=== PATIENT | female | born 1935 | race Caucasian/White ===

== ENCOUNTER 2017-05-13 17:35 | Emergency (ER) | payer MEDICARE ==
[2017-05-13 18:05] VITALS: BP 140/56
--- NOTE | 2017-05-13 19:15 | UC ---
Complaint Female HPI - HPI Summary HPI Summary: urinary pain and burning for 7 hours--no fever, chills, nausea or vomiting - History Of Current Complaint Chief Complaint: UCGU Stated Complaint: URINARY SYMPTOMS Time Seen by Provider: 05/13/17 19:08 Hx Obtained From: Patient ?: No Onset/Duration: Sudden Onset, Lasting Hours - 7 Timing: Constant Severity Initially: Moderate Severity Currently: Moderate Pain Intensity: 4 Pain Scale Used: 0-10 Numeric Character: Burning Aggravating Factor(s): Urination Alleviating Factor(s): Nothing Associated Signs And Symptoms: Positive: Negative - Allergies/Home Medications Allergies/Adverse Reactions: Allergies Allergy/AdvReac Type Severity Reaction Status Date / Time Colestipol Allergy Intermediate Rash Verified 05/13/17 17:46 Doxazosin Allergy Intermediate Itching Verified 05/13/17 17:46 Ranitidine Allergy Unknown Unknown Verified 05/13/17 17:46 Reaction Details Simvastatin Allergy Unknown Unknown Verified 05/13/17 17:46 Reaction Details Sulfa Antibiotics Allergy Unknown Unknown Verified 05/13/17 17:46 Reaction Details FLURASTATIN Allergy Unknown Unknown Uncoded 05/13/17 17:46 Reaction Details PMH/Surg Hx/FS Hx/Imm Hx Previously Healthy: No Endocrine History: Hypothyroidism Cardiovascular History: Hypertension - Surgical History Surgical History: Yes Surgery Procedure, Year, and Place: HYSTERECTOMY 1973, BLADDER LIFT - Family History Known Family History: Positive: None - Social History Occupation: Retired Lives: With Family Alcohol Use: None Substance Use Type: None Smoking Status (MU): Never Smoked Tobacco Review of Systems Constitutional: Negative Skin: Negative Eyes: Negative ENT: Negative Respiratory: Negative Cardiovascular: Negative Gastrointestinal: Negative Genitourinary: Negative, Dysuria, Frequency, Urgency Motor: Negative Neurovascular: Negative Musculoskeletal: Negative Neurological: Negative Psychological: Negative All Other Systems Reviewed And Are Negative: Yes Physical Exam Triage Information Reviewed: Yes Appearance: Well-Appearing, No Pain Distress, Well-Nourished Vital Signs: Initial Vital Signs Temp 99.2 F 05/13/17 17:43 Pulse 58 05/13/17 17:43 Resp 12 05/13/17 17:43 BP 140/56 05/13/17 17:43 Pulse Ox 100 05/13/17 17:43 Vital Signs Reviewed: Yes Eye Exam: Normal Eyes: Positive: Conjunctiva Clear ENT Exam: Normal ENT: Positive: Normal ENT inspection, Hearing grossly normal, Pharynx normal, TMs normal. Negative: Nasal drainage, Trismus, Muffled/hoarse voice Dental Exam: Normal Neck exam: Normal Neck: Positive: Supple, Nontender Respiratory Exam: Normal Respiratory: Positive: Chest non-tender, No respiratory distress, No accessory muscle use Cardiovascular Exam: Normal Cardiovascular: Positive: RRR, Pulses Normal, Brisk Capillary Refill Abdominal Exam: Normal Abdomen Description: Positive: Nontender, No Organomegaly, Soft. Negative: CVA Tenderness (R), CVA Tenderness (L) Musculoskeletal Exam: Normal Musculoskeletal: Positive: Strength Intact, ROM Intact, No Edema Neurological Exam: Normal Neurological: Positive: Alert, Muscle Tone Normal Psychological Exam: Normal Skin Exam: Normal Diagnostics - Laboratory Diagnostic Studies Completed/Ordered: ua +_2 leuks, lysed blood Complaint Female Dx - Course Course Of Treatment: increase fluids, macrobid, follow with pcp, continue current medications - Differential Dx/Diagnosis Differential Diagnosis/HQI/PQRI: Renal Colic, Sexually Transmitted Disease, Urinary Tract Infection Provider Diagnoses: UTI Discharge - Discharge Plan Condition: Stable Disposition: HOME Prescriptions: Nitrofurantoin Monohyd Macro [Macrobid] 100 mg PO BID #20 cap Patient Education Materials: Urinary Tract Infection in Women (ED) Referrals: Apple Peter MD [Primary Care Provider] - 2 Weeks
== END 2017-05-13 19:25 | disposition home or self-care (01) ==
LOC: UCEAST 17:35
DX: N39.0 Urinary tract infection, site not specified (principal); E03.9 Hypothyroidism, unspecified; I10 Essential (primary) hypertension
CPT/HCPCS: 81003; 87077; 87086; 87186; 99212; G0463

== ENCOUNTER 2017-06-27 11:17 | Emergency (ER) | payer MEDICARE ==
[2017-06-27 11:30] VITALS: BP 201/81
--- NOTE | 2017-06-27 13:12 | UC ---
Complaint Female HPI - HPI Summary HPI Summary: Pain and burning with urination began this morning, no nausea, vomiting, fevers , chills or back pain - History Of Current Complaint Chief Complaint: UCGU Stated Complaint: URINARY ISSUE Time Seen by Provider: 06/27/17 13:05 Hx Obtained From: Patient ?: No Onset/Duration: Sudden Onset, Lasting Days - 1, Still Present Timing: Constant Severity Initially: Moderate Severity Currently: Moderate Pain Intensity: 5 Pain Scale Used: 0-10 Numeric Character: Burning Aggravating Factor(s): Urination Alleviating Factor(s): Nothing Associated Signs And Symptoms: Positive: Negative - Allergies/Home Medications Allergies/Adverse Reactions: Allergies Allergy/AdvReac Type Severity Reaction Status Date / Time Colestipol Allergy Intermediate Rash Verified 06/27/17 11:31 Doxazosin Allergy Intermediate Itching Verified 06/27/17 11:31 Ranitidine Allergy Unknown Unknown Verified 06/27/17 11:31 Reaction Details Simvastatin Allergy Unknown Unknown Verified 06/27/17 11:31 Reaction Details Sulfa Antibiotics Allergy Unknown Unknown Verified 06/27/17 11:31 Reaction Details FLURASTATIN Allergy Unknown Unknown Uncoded 06/27/17 11:31 Reaction Details PMH/Surg Hx/FS Hx/Imm Hx Previously Healthy: No Endocrine History: Hypothyroidism Cardiovascular History: Hypertension - Surgical History Surgical History: Yes Surgery Procedure, Year, and Place: HYSTERECTOMY 1973, BLADDER LIFT - Family History Known Family History: Positive: None - Social History Occupation: Retired Lives: With Family Alcohol Use: None Substance Use Type: None Smoking Status (MU): Never Smoked Tobacco Review of Systems Constitutional: Negative Skin: Negative Eyes: Negative ENT: Negative Respiratory: Negative Cardiovascular: Negative Gastrointestinal: Negative Genitourinary: Dysuria, Frequency, Urgency Motor: Negative Neurovascular: Negative Musculoskeletal: Negative Neurological: Negative Psychological: Negative All Other Systems Reviewed And Are Negative: Yes Physical Exam Triage Information Reviewed: Yes Appearance: Well-Appearing, No Pain Distress, Well-Nourished Vital Signs: Initial Vital Signs Temp 96.3 F 06/27/17 11:25 Pulse 80 06/27/17 11:25 Resp 12 06/27/17 11:25 BP 201/81 06/27/17 11:25 Pulse Ox 100 06/27/17 11:25 Vital Signs Reviewed: Yes Eye Exam: Normal Eyes: Positive: Conjunctiva Clear ENT Exam: Normal ENT: Positive: Normal ENT inspection, Hearing grossly normal. Negative: Nasal congestion, Nasal drainage, Trismus, Muffled/hoarse voice Dental Exam: Normal Neck exam: Normal Neck: Positive: Supple, Nontender Respiratory Exam: Normal Respiratory: Positive: Chest non-tender, No respiratory distress, No accessory muscle use Cardiovascular Exam: Normal Cardiovascular: Positive: RRR, Brisk Capillary Refill Abdominal Exam: Normal Abdomen Description: Positive: No Organomegaly, Soft, Other: - suprapubic pressure. Negative: CVA Tenderness (R), CVA Tenderness (L) Bowel Sounds: Positive: Present Musculoskeletal Exam: Normal Musculoskeletal: Positive: Strength Intact, ROM Intact, No Edema Neurological Exam: Normal Neurological: Positive: Alert, Muscle Tone Normal Psychological Exam: Normal Skin Exam: Normal Complaint Female Dx - Course Course Of Treatment: keflex, increase fluids, follow elevated blood pressure with pcp - Differential Dx/Diagnosis Differential Diagnosis/HQI/PQRI: Renal Colic, Ureteral Stone, Urinary Tract Infection Provider Diagnoses: UTI, hypertension in poor control Discharge - Discharge Plan Condition: Stable Disposition: HOME Prescriptions: Cephalexin CAP* [Keflex CAP*] 500 mg PO BID #20 cap Patient Education Materials: Cephalexin (By mouth), Urinary Tract Infection in Women (ED) Referrals: Apple Peter MD [Primary Care Provider] - 2 Weeks
--- NOTE | 2017-06-29 10:59 | UC ---
Progress - Progress Note Progress Note: e coli more than 100k on Keflex. Ebenezer Tamez MD
== END 2017-06-27 13:20 | disposition home or self-care (01) ==
LOC: UCEAST 11:17
DX: N39.0 Urinary tract infection, site not specified (principal); B96.20 Unspecified Escherichia coli [E. coli] as the cause of diseases classified elsewhere; I10 Essential (primary) hypertension; E03.9 Hypothyroidism, unspecified; Z90.710 Acquired absence of both cervix and uterus
CPT/HCPCS: 81003; 87077; 87086; 87186; 99211; G0463

== ENCOUNTER 2018-05-03 18:54 | Emergency (ER) | payer MEDICARE ==
--- NOTE | 2018-05-03 19:16 | UC ---
Complaint Female HPI - HPI Summary HPI Summary: This patient is an 82 year old F presenting to [facility] with a chief complaint of burning with urination since this afternoon. The patient rates the pain 3/10 in severity. Symptoms aggravated by urination. Symptoms alleviated by nothing. Patient reports lower back pain and frequency since 2 days ago. Patient denies fever, chills, constipation, diarrhea, or decreased fluid intake. - History Of Current Complaint Stated Complaint: POSS UTI Time Seen by Provider: 05/03/18 19:03 Hx Obtained From: Patient Onset/Duration: Gradual Onset, Lasting Hours, Still Present Timing: Constant, Lasting Hours Severity Initially: Mild Severity Currently: Mild Pain Intensity: 3 Pain Scale Used: 0-10 Numeric Character: Burning Aggravating Factor(s): Urination Alleviating Factor(s): Nothing Associated Signs And Symptoms: Positive: Back Pain. Negative: Fever - Allergies/Home Medications Allergies/Adverse Reactions: Allergies Allergy/AdvReac Type Severity Reaction Status Date / Time colestipol Allergy Rash Verified 05/03/18 19:51 doxazosin Allergy Itching Verified 05/03/18 19:51 ranitidine Allergy Unknown Verified 05/03/18 19:51 Reaction Details simvastatin Allergy Unknown Verified 05/03/18 19:51 Reaction Details Sulfa (Sulfonamide Allergy Unknown Verified 05/03/18 19:51 Antibiotics) Reaction Details FLURASTATIN Allergy Unknown Unknown Uncoded 05/03/18 19:10 Reaction Details PMH/Surg Hx/FS Hx/Imm Hx Endocrine History: Hypothyroidism Cardiovascular History: Hypertension - Surgical History Surgical History: Yes Surgery Procedure, Year, and Place: HYSTERECTOMY 1973, BLADDER LIFT - Family History Known Family History: Positive: None - Social History Alcohol Use: None Substance Use Type: None Smoking Status (MU): Never Smoked Tobacco Review of Systems Constitutional: Negative - negative fever, negative chills Gastrointestinal: Negative - negative diarrhea, negative constipation Genitourinary: Dysuria, Frequency Musculoskeletal: Myalgia - lower back pain All Other Systems Reviewed And Are Negative: Yes Physical Exam - Summary Physical Exam Summary: General: well-appearing, no pain distress Skin: warm, color reflects adequate perfusion, dry Head: normal Eyes: EOMI, JIL ENT: normal Neck: supple, nontender Respiratory: CTA, breath sounds present Cardiovascular: RRR Abdomen: soft, nontender Bowel: present Musculoskeletal: normal, strength/ROM intact, mild tenderness of lower back Neurological: sensory/motor intact, A&O x3 Psychological: affect/mood appropriate Triage Information Reviewed: Yes Vital Signs: Initial Vital Signs Temp 98.1 F 05/03/18 19:02 Pulse 108 05/03/18 19:02 Resp 18 05/03/18 19:02 BP 0/0 05/03/18 19:02 Pulse Ox 100 05/03/18 19:02 Vital Signs Reviewed: Yes Complaint Female Dx - Course Course Of Treatment: F/U PMD; RECHECK SOONER IF WORSE. - Differential Dx/Diagnosis Provider Diagnoses: UTI Discharge - Sign-Out/Discharge Documenting (check all that apply): Patient Departure - Discharge Plan Condition: Stable Disposition: HOME Prescriptions: Sulfamethox/Trimethoprim DS* [Bactrim DS 800/160 TAB*] 1 tab PO BID #20 tab Patient Education Materials: Urinary Tract Infection in Women (ED) Referrals: Apple Peter MD [Primary Care Provider] - Additional Instructions: FOLLOW UP WITH YOUR DOCTOR. GET RECHECKED FOR ANY WORSENING OF YOUR CONDITION; PAIN, FEVER, YOU FEEL ILL OR QUESTIONS OR CONCERNS. - Billing Disposition and Condition Condition: STABLE Disposition: Home
[2018-05-03 19:20] VITALS: BP 150/78
== END 2018-05-03 20:14 | disposition home or self-care (01) ==
LOC: UCEAST 18:54
DX: N39.0 Urinary tract infection, site not specified (principal); M54.5 Low back pain; E03.9 Hypothyroidism, unspecified; I10 Essential (primary) hypertension; Z90.710 Acquired absence of both cervix and uterus; Z88.2 Allergy status to sulfonamides; Z88.8 Allergy status to other drugs, medicaments and biological substances
CPT/HCPCS: 81003; 87077; 87086; 87186; 99212; G0463

== ENCOUNTER 2019-10-26 13:23 | Emergency (ER) | payer MEDICARE ==
[2019-10-26 13:52] VITALS: BP 170/65
--- NOTE | 2019-10-26 16:29 | UC ---
Complaint Female HPI - HPI Summary HPI Summary: 83-year-old woman comes in with a chief complaint of urinary frequency urgency and pain. Is been going on for couple of days. Drink a lot of water yesterday she felt like it was improving however it's returned today. No complaint of any fevers or chills. She does have some suprapubic pain with palpation and when she urinates. When she was sitting here in clinic she started to feel some right flank discomfort. Patient reports this feels like urinary tract infection. - History Of Current Complaint Chief Complaint: UCGU Stated Complaint: URINARY ISSUE Time Seen by Provider: 10/26/19 16:14 Pain Intensity: 5 - Allergies/Home Medications Allergies/Adverse Reactions: Allergies Allergy/AdvReac Type Severity Reaction Status Date / Time atenolol Allergy Intermediate Nausea Verified 10/26/19 13:59 celecoxib [From Celebrex] Allergy Intermediate nausea Verified 10/26/19 13:58 itching ciprofloxacin Allergy Intermediate Nausea Verified 10/26/19 13:58 colestipol Allergy Rash Verified 10/26/19 13:58 doxazosin Allergy Itching Verified 10/26/19 13:58 ranitidine Allergy Unknown Verified 10/26/19 13:58 Reaction Details simvastatin Allergy Unknown Verified 10/26/19 13:58 Reaction Details Sulfa (Sulfonamide Allergy Unknown Verified 10/26/19 13:58 Antibiotics) Reaction Details FLURASTATIN Allergy Unknown Unknown Uncoded 10/26/19 13:58 Reaction Details Home Medications: Home Medications Famotidine [Acid Controller] 20 mg PO DAILY WITH MEAL 10/26/19 [History Confirmed 10/26/19] Irbesartan 300 mg PO DAILY WITH MEAL 10/26/19 [History Confirmed 10/26/19] PMH/Surg Hx/FS Hx/Imm Hx Previously Healthy: Yes Endocrine History: Hypothyroidism Cardiovascular History: Hypertension GI/ History: Gastroesophageal Reflux - Surgical History Surgical History: Yes Surgery Procedure, Year, and Place: HYSTERECTOMY 1973, BLADDER LIFT - Family History Known Family History: Positive: None - Social History Alcohol Use: None Substance Use Type: None Smoking Status (MU): Never Smoked Tobacco Review of Systems All Other Systems Reviewed And Are Negative: Yes Constitutional: Positive: Other - SEE HPI Skin: Positive: Negative Eyes: Positive: Negative ENT: Positive: Negative Respiratory: Positive: Negative Cardiovascular: Positive: Negative Gastrointestinal: Positive: Other - SEE HPI Genitourinary: Positive: Dysuria, Frequency, Urgency Motor: Positive: Negative Neurovascular: Positive: Negative Musculoskeletal: Positive: Negative Neurological: Positive: Negative Psychological: Positive: Negative Is Patient Immunocompromised?: No Physical Exam Triage Information Reviewed: Yes Appearance: Well-Appearing, No Pain Distress, Well-Nourished Vital Signs: Initial Vital Signs Temp 97.2 F 10/26/19 13:49 Pulse 63 10/26/19 13:49 Resp 20 10/26/19 13:49 BP 170/65 10/26/19 13:49 Pulse Ox 98 10/26/19 13:49 Vital Signs Reviewed: Yes Eye Exam: Normal Eyes: Positive: Conjunctiva Clear Neck: Positive: Supple Respiratory: Positive: Lungs clear, Normal breath sounds, No respiratory distress Cardiovascular: Positive: RRR Abdomen Description: Positive: Other: - Mild tenderness to palpation right flank and suprapubic area of the abdomen. Bowel Sounds: Positive: Present Musculoskeletal: Positive: Strength Intact, ROM Intact Neurological: Positive: Alert, Muscle Tone Normal Psychological: Positive: Age Appropriate Behavior Skin Exam: Normal Complaint Female Dx - Differential Dx/Diagnosis Provider Diagnosis: UTI (urinary tract infection) Discharge ED - Sign-Out/Discharge Documenting (check all that apply): Patient Departure All imaging exams completed and their final reports reviewed: No Studies - Discharge Plan Condition: Stable Disposition: HOME Prescriptions: Cephalexin CAP* [Keflex CAP*] 500 mg PO TID #21 cap Patient Education Materials: Urinary Tract Infection in Women (ED) Referrals: Apple Peter MD [Primary Care Provider] - Additional Instructions: FOLLOW UP WITH YOUR DOCTOR IF NOT COMPLETELY IMPROVED. GO TO THE EMERGENCY DEPARTMENT IF NOT IMPROVED OR WORSE; PAIN, FEVER, YOU FEEL ILL OR ANY QUESTIONS OR CONCERNS. - Billing Disposition and Condition Condition: STABLE Disposition: Home
== END 2019-10-26 16:40 | disposition home or self-care (01) ==
LOC: UCEAST 13:23
DX: N39.0 Urinary tract infection, site not specified (principal); E03.9 Hypothyroidism, unspecified; I10 Essential (primary) hypertension; Z88.1 Allergy status to other antibiotic agents; Z88.2 Allergy status to sulfonamides; Z88.8 Allergy status to other drugs, medicaments and biological substances
CPT/HCPCS: 81003; 87077; 87086; 87186; 99212; G0463

== ENCOUNTER 2019-11-05 18:48 | Emergency (ER) | payer MEDICARE ==
--- NOTE | 2019-11-05 19:33 | UC ---
Nausea/Vomiting/Diarrhea HPI - History of Current Complaint Stated Complaint: URINARY - Allergies/Home Medications Allergies/Adverse Reactions: Allergies Allergy/AdvReac Type Severity Reaction Status Date / Time atenolol Allergy Intermediate Nausea Verified 10/26/19 13:59 celecoxib [From Celebrex] Allergy Intermediate nausea Verified 10/26/19 13:58 itching ciprofloxacin Allergy Intermediate Nausea Verified 10/26/19 13:58 colestipol Allergy Rash Verified 10/26/19 13:58 doxazosin Allergy Itching Verified 10/26/19 13:58 ranitidine Allergy Unknown Verified 10/26/19 13:58 Reaction Details simvastatin Allergy Unknown Verified 10/26/19 13:58 Reaction Details Sulfa (Sulfonamide Allergy Unknown Verified 10/26/19 13:58 Antibiotics) Reaction Details FLURASTATIN Allergy Unknown Unknown Uncoded 10/26/19 13:58 Reaction Details PMH/Surg Hx/FS Hx/Imm Hx - Surgical History Surgical History: Yes Surgery Procedure, Year, and Place: HYSTERECTOMY 1973, BLADDER LIFT - Family History Known Family History: Positive: None - Social History Alcohol Use: None Substance Use Type: None Smoking Status (MU): Never Smoked Tobacco Discharge ED - Discharge Plan Referrals: Apple Peter MD [Primary Care Provider] -
[2019-11-05 19:47] VITALS: BP 182/79
[2019-11-05] MEDS ORDERED: Cefdinir 250mg/5 ml* 100 ml ORAL.SUSP PO ONE (20:14)
--- NOTE | 2019-11-08 07:17 | UC ---
- Progress Note Progress Note: + e coli on cephalexin await sensitivity emilyj Course/Dx - Diagnoses Provider Diagnoses: UTI (urinary tract infection) Discharge ED - Sign-Out/Discharge Documenting (check all that apply): Post-Discharge Follow Up All imaging exams completed and their final reports reviewed: No Studies - Discharge Plan Condition: Good Disposition: HOME Prescriptions: Cefdinir [Cefdinir 300 MG CAP] 300 mg PO BID 7 Days #13 cap Patient Education Materials: Urinary Tract Infection in Older Adults (ED) Referrals: Apple Peter MD [Primary Care Provider] - Additional Instructions: Increase fluids, avoid perfumed toilet papers and soap. Follow-up with your primary care provider if no improvement in 3 or 4 days. Go to the emergency room if you develop any fever, chills, worsening back pain, vomiting and unable keep the medicine down. - Billing Disposition and Condition Condition: GOOD Disposition: Home
--- NOTE | 2019-11-09 17:10 | UC ---
Complaint Female HPI - HPI Summary HPI Summary: 83-year-old female with burning on urination and urinary frequency. She finished a course of antibiotics but states few days later she developed symptoms again. She denies any fever. - History Of Current Complaint Chief Complaint: UCGU Stated Complaint: URINARY Time Seen by Provider: 11/05/19 19:39 Hx Obtained From: Patient ?: No Onset/Duration: Gradual Onset Timing: Intermittent Severity Initially: Mild Severity Currently: Mild Pain Intensity: 5 Pain Scale Used: 0-10 Numeric Character: Burning Aggravating Factor(s): Urination Alleviating Factor(s): Nothing - Allergies/Home Medications Allergies/Adverse Reactions: Allergies Allergy/AdvReac Type Severity Reaction Status Date / Time atenolol Allergy Intermediate Nausea Verified 11/05/19 19:47 celecoxib [From Celebrex] Allergy Intermediate nausea Verified 11/05/19 19:47 itching ciprofloxacin Allergy Intermediate Nausea Verified 11/05/19 19:47 colestipol Allergy Rash Verified 11/05/19 19:47 doxazosin Allergy Itching Verified 11/05/19 19:47 ranitidine Allergy Unknown Verified 11/05/19 19:47 Reaction Details simvastatin Allergy Unknown Verified 11/05/19 19:47 Reaction Details Sulfa (Sulfonamide Allergy Unknown Verified 11/05/19 19:47 Antibiotics) Reaction Details FLURASTATIN Allergy Unknown Unknown Uncoded 11/05/19 19:47 Reaction Details PMH/Surg Hx/FS Hx/Imm Hx Previously Healthy: Yes Endocrine History: Thyroid Disease Cardiovascular History: Hypertension - Surgical History Surgical History: Yes Surgery Procedure, Year, and Place: HYSTERECTOMY 1973, BLADDER LIFT - Family History Known Family History: Positive: None - Social History Alcohol Use: None Substance Use Type: None Smoking Status (MU): Never Smoked Tobacco Review of Systems All Other Systems Reviewed And Are Negative: Yes Genitourinary: Positive: Dysuria, Frequency, Urgency Is Patient Immunocompromised?: No Physical Exam Triage Information Reviewed: Yes Appearance: Well-Appearing, No Pain Distress, Well-Nourished Vital Signs: Initial Vital Signs Temp 98.9 F 11/05/19 19:40 Pulse 70 11/05/19 19:40 Resp 16 11/05/19 19:40 BP 182/79 11/05/19 19:40 Pulse Ox 100 11/05/19 19:40 Vital Signs Reviewed: Yes Respiratory: Positive: Lungs clear, Normal breath sounds, No respiratory distress, No accessory muscle use Cardiovascular: Positive: RRR, No Murmur, Pulses Normal, Brisk Capillary Refill Abdomen Description: Positive: Nontender, No Organomegaly, Soft. Negative: CVA Tenderness (R), CVA Tenderness (L), Distended, Guarding, Hepatomegaly, Splenomegaly Bowel Sounds: Positive: Present Musculoskeletal Exam: Normal Neurological Exam: Normal Psychological Exam: Normal Skin Exam: Normal Complaint Female Dx - Course Course Of Treatment: Urinalysis: 3+ positive leukocytes. She is comfortable here and nontoxic. - Differential Dx/Diagnosis Provider Diagnosis: UTI (urinary tract infection) Discharge ED - Sign-Out/Discharge Documenting (check all that apply): Patient Departure All imaging exams completed and their final reports reviewed: No Studies - Discharge Plan Condition: Good Disposition: HOME Prescriptions: Cefdinir [Cefdinir 300 MG CAP] 300 mg PO BID 7 Days #13 cap Patient Education Materials: Urinary Tract Infection in Older Adults (ED) Referrals: Apple Peter MD [Primary Care Provider] - Additional Instructions: Increase fluids, avoid perfumed toilet papers and soap. Follow-up with your primary care provider if no improvement in 3 or 4 days. Go to the emergency room if you develop any fever, chills, worsening back pain, vomiting and unable keep the medicine down. - Billing Disposition and Condition Condition: GOOD Disposition: Home
== END 2019-11-05 20:26 | disposition home or self-care (01) ==
LOC: UCCORT 18:48
DX: N39.0 Urinary tract infection, site not specified (principal); B96.20 Unspecified Escherichia coli [E. coli] as the cause of diseases classified elsewhere; E07.9 Disorder of thyroid, unspecified; I10 Essential (primary) hypertension; Z88.1 Allergy status to other antibiotic agents; Z88.2 Allergy status to sulfonamides; Z88.8 Allergy status to other drugs, medicaments and biological substances
CPT/HCPCS: 81003; 87077; 87086; 87186; 99212; G0463